=== PATIENT | female | born 1995 | race Caucasian/White ===

== ENCOUNTER 2021-08-24 00:21 | Emergency (ER) | payer SELFPAY ==
[~2021-08-24] VITALS: Ht 154.9 cm; Wt 60.7 kg
[2021-08-24 00:36] VITALS: BP 105/61
== END 2021-08-24 01:30 | disposition left against medical advice (07) ==
LOC: ER 00:21
DX: Z53.21 Procedure and treatment not carried out due to patient leaving prior to being seen by health care provider (principal)